=== PATIENT | male | born 1975 | race Caucasian/White ===

== ENCOUNTER 2019-11-21 11:07 | Emergency (ER) | payer BC ==
--- OUTSIDE RECORDS SUMMARY | 2019-11-21 11:18 | XMS REPORT | Continuity of Care Document ---
:1975 External Reference #:[id number] Author Name Helder Mosley DO FACC (transmitted by agent of provider Charlene Patel) Address [address] [place] [address] Care Team Providers Name Role Phone Daren Gordon MD - Family Medicine Care Team Information De Alcholizer Problems Description No Information Available Social History Type Date Description Comments Sex Unknown Tobacco Use Start: Unknown End: Former Cigarette Smoker Unknown Smoking Status Reviewed: 10/29/19 Former Cigarette Smoker ETOH Use Denies alcohol use Tobacco Use Start: Unknown End: Patient is a former smoker Unknown Recreational Drug Use Denies Drug Use Exercise Type/Frequency Exercises sporadically Allergies, Adverse Reactions, Alerts Description No Information Available Medications Active Medications SIG Qnty Indications Ordering Date Provider Ferrous Sulfate 1 by mouth every 90tabs Helder SPedro 10/29/2019 day DO Dimitri FACC 325(65Fe) mg Tablets Keppra 1 by mouth twice a Unknown 1000mg Tablets day Metoprolol Tartrate 1 by mouth twice a 180tabs Helder S. day DO Dimitri FACC 50mg Tablets Dexamethasone 2MG Take 2 tabsq 8 hr Unknown Oral Tab for 3 days,then 2 tabs q12 hr for 3 days,then 1 tab q12 hr indefinitely Omeprazole 1 by mouth every Unknown 20mg day Capsules DR Vitamin C 500 MG 1 tab orally once a Unknown Oral Tablet day Tylenol 2 tablets every 4 Unknown 325mg hours as needed for Capsules pain Immunizations Description No Information Available Vital Signs Date Vital Result Comment 10/29/2019 8:40am Height 69 inches 5'9" Weight 259.00 lb with shoes Heart Rate 72 /min BP Systolic 118 mmHg rue reg cuff BP Diastolic 64 mmHg rue reg cuff BP Systolic Sitting 118 mmHg lue reg cuff BP Diastolic Sitting 64 mmHg lue reg cuff BP Systolic Standing 120 mmHg lue reg cuff BP Diastolic Standing 70 mmHg lue reg cuff Respiratory Rate 14 /min BMI (Body Mass Index) 38.2 kg/m2 Ejection Fraction none Results Test Acquired Date Facility Test Result H/L Range Note Laboratory test 10/22/2019 [facility] Surgical SEE RESULT 1 , [address] [place] [address] [phone] 1 [id number] 2 SEE RESULT BELOW Name: REYNA PEREZ : [address]: Satnam Montejo MD Acct: [id number] Unit: [id number] AGE: 44 Location: [facility] Re10/22/19 SEX: M Status: DEP REF SPEC: [id number] KYLIE: 10/22/19- SUBM DR: Satnam Montejo MD REQ: [id number] RECD: 10/22/19 STATUS: MAVIS WALTON DR: Josselin Tran MD _ ORDERED: LEVEL 4 COMMENTS: [id number] FINAL DIAGNOSIS Colon, at 25 cm, biopsy: -- Benign colonic mucosa with surface epithelial hyperplasia; see comment. COMMENT: The clinical history of necrotic ulcerated mass at this site is noted. There is no evidence of neoplasia in the sampled material. The findings are predominantly surface epithelial mucosa and may not be provider relations representative of the underlying lesion. POST-OPERATIVE DIAGNOSIS Sigmoidoscopy: to 25 cm; necrotic ulcerated mass; biopsy (3) GROSS DESCRIPTION The specimen is received in formalin labeled, Biopsy Colon Mass at 25 cm, and consists of a 0.7 x 0.5 by up to 0.3 cm aggregate of loo-pink irregular soft tissue fragments which is submitted entirely in one cassette. Signed by and Reported on: Kelsy Whitman MD 10/27/19 0908 END OF REPORT DEPARTMENT OF PATHOLOGY, [address] [place] [address] Everardo Lizarraga M.D. Director [facility] # [id number] Procedures Date Code Description Status 10/29/2019 24579 EKG Tracing & Interpretation Completed Medical Devices Description No Information Available Encounters Type Date Location Provider Dx Diagnosis Office Visit 10/29/2019 [facility] Helder Mosley I48.0 Paroxysmal atrial 9:00a Of [facility] DO LOCATED WITHIN [facility] fibrillation I10 Essential (primary) hypertension Assessments Date Code Description Provider 10/29/2019 I48.0 Paroxysmal atrial fibrillation Helder Mosley DO FACC 10/29/2019 I10 Essential (primary) hypertension Helder Mosley DO FACC Plan of Treatment Future Appointment(s):12/15/2019 8:40 am - Helder Mosley DO [facility] at [facility]10/29/2019 - Helder Mosley DO FACCI48.0 Paroxysmal atrial fibrillationComments:- You can stop taking lisinopril. If the BP goes up significant we can always restart it. - In order to restore your rhythm to normal, you would need to be on blood thinners for 1 month at the [facility] minimum. You would obviously need approval from Dr. Tran prior to considering this.Follow up:f/u end of November, with EKGI10 Essential (primary ) hypertension Functional Status Description No Information Available Mental Status Description No Information Available Referrals Description No Information Available
--- NOTE | 2019-11-21 11:38 | ED ---
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 Patient reports he had craniotomy on 10/07/19 at [facility] with Dr. Dalton and then had radiation only once on 10/19/19. Patient has been on chemotherapy since then and his last chemo (Inlyta) was on 11/18/19. Patient had his first and last infusion on 11/11/[address] Vargas. Patient states he was placed on Dexamethasone throughout this whole time and everything was going well but then it was discontinued. Patient reports since his last infusion he has been having intermittent fevers and a nonproductive cough. Patient reports a Tmax of 100.9F on 11/16/19, however he notes his fever broke on 11/18/19 and has not had fevers since then. Patient describes his nonproductive cough is worse with lying down. Patient saw Dr. Vargas on 11/16, 11/19, and yesterday 11/20. Patient states he had a chest XR done on 11/16 that was negative and was placed on antibiotics (Levofloxacin). Patient notes Charlene Concepcion, [employer], thinks he has inflammation of his lymph nodes. He notes he was not able to sleep last night secondary to cough. Additionally patient reports difficulty catching his breath, post nasal drip, and he has noticed mass on left side of abdomen has increased in size. Patient denies any chest pain, nausea, vomiting, diarrhea, constipation. He states his last bowel movement was this morning at 1030. Patient notes he has been taking acetaminophen with hydrocodone for his cough, last dose was at midnight. patient spoke with Dr. Molina this morning and was recommended to come to the ED. Home Medications Medication Instructions Recorded Confirmed Type Dexamethasone TAB* [Decadron TAB*] 1 mg PO BID 10/19/19 11/02/19 History Ferrous Sulfate TAB* 325 mg PO DAILY 10/19/19 11/02/19 History Metoprolol Tartrate TAB* 50 mg PO BID 10/19/19 11/02/19 History [Lopressor TAB*] Omeprazole 20 mg PO DAILY 10/19/19 11/02/19 History levETIRAcetam TAB* [Keppra TAB*] 1,000 mg PO BID 10/19/19 11/02/19 History Ascorbic Acid TAB* [Vitamin C 500 mg PO DAILY 10/22/19 11/02/19 History TAB*] - History Of Current Complaint Chief Complaint: EDGeneral Time Seen by Provider: 11/21/19 11:24 Hx Obtained From: Patient Onset/Duration: Lasting Weeks, Still Present Timing: Weeks Severity Currently: Mild Aggravating Factor(s): lying down Alleviating Factor(s): sitting up Associated Signs And Symptoms: Positive: SOB, Cough. Negative: Chest Pain, Nausea, Vomiting, Diarrhea, Fever - Allergies/Home Medications Allergies/Adverse Reactions: Allergies Allergy/AdvReac Type Severity Reaction Status Date / Time No Known Allergies Allergy Verified 11/21/19 11:13 Home Medications: Home Medications Dexamethasone TAB* [Decadron TAB*] 1 mg PO BID 10/19/19 [History Confirmed 11/02] Ferrous Sulfate TAB* 325 mg PO DAILY 10/19/19 [History Confirmed 11/02/19] Metoprolol Tartrate TAB* [Lopressor TAB*] 50 mg PO BID 10/19/19 [History Confirmed 11/02/19] Omeprazole 20 mg PO DAILY 10/19/19 [History Confirmed 11/02/19] levETIRAcetam TAB* [Keppra TAB*] 1,000 mg PO BID 10/19/19 [History Confirmed 07/12] Ascorbic Acid TAB* [Vitamin C TAB*] 500 mg PO DAILY 10/22/19 [History Confirmed 11/02/19] PMH/Surg Hx/FS Hx/Imm Hx Endocrine/Hematology History: Denies: Hx Diabetes Cardiovascular History: Reports: Hx Hypertension, Other Cardiovascular Problems/ Disorders - HX OF SEIZURES Denies: Hx Pacemaker/ICD History: Reports: Hx Renal Disease - MALIGNANT NEOPLASM OF LEFT KIDNEY 2019 Sensory History: Denies: Hx Hearing Aid Psychiatric History: Denies: Hx Panic Disorder - Cancer History Cancer Type, Location and Year: Metastatic renal CA with mets to colon, chest, and brain Hx Chemotherapy: No Hx Radiation Therapy: Yes - Surgical History Surgical History: Yes Surgery Procedure, Year, and Place: 09/2019 BRAIN CANCER SURGERY - CRANIOTOMY - [facility] - PLATES AND STAR CLOSURE. 10/2019 POWER PORT PLACED Infectious Disease History: No Infectious Disease History: Denies: Traveled Outside the [place] in Last 30 Days - Family History Family History: Paternal grandfather with lymphoma. - Social History Alcohol Use: None Substance Use Type: Reports: None Smoking Status (MU): Never Smoked Tobacco Review of Systems Negative: Fever ENT: Other - POSITIVE: post nasal drip Negative: Chest Pain Positive: Shortness Of Breath, Cough Negative: Vomiting, Diarrhea, Nausea, Other - NEGATIVE: constipation Genitourinary: Other - POSITIVE: increased bulge on left side All Other Systems Reviewed And Are Negative: Yes Physical Exam - Summary Physical Exam Summary: VITAL SIGNS: Reviewed. GENERAL: Patient is a well-developed and nourished male who is lying comfortable in the stretcher. Patient is not in any acute respiratory distress. HEAD AND FACE: No signs of trauma. No ecchymosis, hematomas or skull depressions. No sinus tenderness. EYES: PERRLA, EOMI x 2, No injected conjunctiva, no nystagmus. EARS: Hearing grossly intact. Ear canals and tympanic membranes are within normal limits. MOUTH: Oropharynx within normal limits. NECK: Supple, trachea is midline, no adenopathy, no JVD, no carotid bruit, no c- spine tenderness, neck with full ROM. CHEST: Symmetric, no tenderness at palpation LUNGS: Clear to auscultation bilaterally. No wheezing or crackles. CVS: Regular rate and rhythm, S1 and S2 present, no murmurs or gallops appreciated. ABDOMEN: Soft, non-tender. Bowel sounds are normal. Large mass in left upper quadrant. EXTREMITIES: FROM in all major joints, no edema, no cyanosis or clubbing. NEURO: Alert and oriented x 3. No acute neurological deficits. Speech is normal and follows commands. SKIN: Dry and warm Triage Information Reviewed: Yes Vital Signs On Initial Exam: Initial Vitals Temp Pulse Resp BP Pulse Ox 99.2 F 125 19 134/114 99 11/21/19 11:09 11/21/19 11:09 11/21/19 11:11/21/19 11:09 11/21/19 11:09 Vital Signs Reviewed: Yes Procedures - Sedation Patient Received Moderate/Deep Sedation with Procedure: No Diagnostics - Vital Signs Vital Signs Temp Pulse Resp BP Pulse Ox 11/21/19 11:09 99.2 F 125 19 134/114 99 - Laboratory Result Diagrams: 11/21/19 11:51 11/21/19 11:51 Lab Statement: Any lab studies that have been ordered have been reviewed, and results considered in the medical decision making process. - CT Abdomen/Pelvis CT CT Interpretation Completed By: Radiologist Summary of CT Findings: IMPRESSION: 1. Since the CT examination acquire September 18, 2019 there has been interval growth of a pulmonary nodule in the right middle lobe from 3 mm to 10 mm. 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 There is visible mass effect on neighboring structures especially the bowel. 2. The patient has developed bibasilar pleural effusions, larger on the left than right, relative to the prior CT examination. Dr. Winn has reviewed this report. 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 Patient reports he had craniotomy on 10/07 at [facility] with Dr. Dalton and then had radiation only once on . Patient has been on chemotherapy since then and his last chemo (Inlyta) was on 11/18/19. Patient had his first and last infusion on 11/11/[address] Vargas. Patient states he was placed on Dexamethasone throughout this whole time and everything was going well but then it was discontinued. Patient reports since his last infusion he has been having intermittent fevers and a nonproductive cough. Patient reports a Tmax of 100.9F on 11/16/19, however he notes his fever broke on 11/18/19 and has not had fevers since then. Patient describes his nonproductive cough is worse with lying down. Patient saw Dr. Vargas on 11/16, 11/19, and yesterday 11/20. Patient states he had a chest XR done on 11/16 that was negative and was placed on antibiotics (Levofloxacin). Patient notes Charlene Concepcion NP, thinks he has inflammation of his lymph nodes. He notes he was not able to sleep last night secondary to cough. Additionally patient reports difficulty catching his breath, post nasal drip, and he has noticed mass on left side of abdomen has increased in size. Patient denies any chest pain, nausea, vomiting, diarrhea, constipation. He states his last bowel movement was this morning at 1030. Patient notes he has been taking acetaminophen with hydrocodone for his cough, last dose was at midnight. patient spoke with Dr. Molina this morning and was recommended to come to the ED. Blood test results without any significant abnormality except for a slight anemia with a hemoglobin 11.4 and hematocrit 36, sodium 130, chloride 99, carbon dioxide 21, calcium is 7.9, alkaline phosphatase 559, CRP is 160, total protein is 5.6. Abdominal and pelvic CT IMPRESSION: 1. Since the CT examination acquired September 18, 2019 there has been interval growth of a pulmonary nodule in the right middle lobe from 3 mm to 10 mm. 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 There is visible mass effect on neighboring structures, especially the bowel. 2. The patient has developed bibasilar pleural effusions, larger on the left than the right, relative to the prior CT examination. I discussed the findings and test results with Dr. Molina from oncology and he recommends for the patient to be discharged home and follow up on Saturday with Dr. Vargas. The patient and the patients agree. Patient was discharged home with follow up from Dr. Vargas on Saturday. Patient is hemodynamically stable, alert and oriented 3. - Diagnoses Provider Diagnoses: Abdominal mass, Cough, Pleural effusion, Pulmonary nodule - Physician Notifications Discussed Care Of Patient With: Sly Molina Time Discussed With Above Provider: 11:37 Instructed by Provider To: Other - Dr. Molina, oncologist, recommends abdomen/ pelvis CT. [14:52] Discussed results with Dr. Molina who recommends patient to be discharged home and follow up with Dr. Vargas on Saturday. Discharge ED - Sign-Out/Discharge Documenting (check all that apply): Patient Departure - Discharge home - Discharge Plan Condition: Stable Disposition: HOME Patient Education Materials: Pleural Effusion (ED), Acute Cough (ED) Referrals: Josselin Vargas MD [Primary Care Provider] - Additional Instructions: FOLLOW UP WITH DR. VARGAS ON 11/23/19. RETURN TO THE EMERGENCY DEPARTMENT FOR ANY WORSENING OR NEW SYMPTOMS. - Billing Disposition and Condition Condition: STABLE Disposition: Home - Attestation Statements Document Initiated by Scribe: Yes Documenting Scribe: Veena Rehman Provider For Whom Sofi is Documenting (Include Credential): Az Winn MD Scribe Attestation: Veena Bolaños, scribed for Az Winn MD on 11/21/19 at 2132. Scribe Documentation Reviewed: Yes Provider Attestation: The documentation as recorded by the Veena hernandez accurately reflects the service I personally performed and the decisions made by me, Az Winn MD Status of Scribe Document: Viewed
[2019-11-21 12:12] LABS: ABS Basophils 0.1 10^3/ul (0-0.2); ABS Lymphocytes 0.7 10^3/ul (1.0-4.8); ABS Monocytes 1.2 10^3/ul (0-0.8); Eosinophil % 0.5 %; Hematocrit 36 % (42-52); Hemoglobin 11.4 g/dL (14.0-18.0); Mean Corpuscular HGB Conc 31 g/dL (31-36); Mean Corpuscular Hemoglobin 21 pg (27-31); Mean Corpuscular Volume 68 fL (80-94); Mean Platelet Volume 8.6 fL (7.4-10.4); Platelet Count 304 10^3/uL (150-450); Red Blood Count 5.37 10^6 /uL (4.18-5.48); Red Cell Distribution Width 22 % (10-15); White Blood Count 9.9 10^3/uL (3.5-10.8)
[2019-11-21 12:21] LABS: ALT 33 U/L (7-52); AST 36 U/L (13-39); Albumin 2.9 g/dL (3.2-5.2); Albumin/Globulin Ratio 1.1 (1-3); Alkaline Phosphatase 559 U/L (34-104); Anion Gap 10 mmol/L (2-11); Blood Urea Nitrogen 7 mg/dL (6-24); C Reactive Protein 160.53 mg/L (<8.01); CO2 Carbon Dioxide 21 mmol/L (22-32); Calcium 7.9 mg/dL (8.6-10.3); Chloride 99 mmol/L (101-111); EGFR African American 114.3 (>60); EGFR Non-African American 94.5 (>60); Globulin 2.7 g/dL (2-4); Glucose 90 mg/dL (70-100); Sodium 130 mmol/L (135-145); Total Protein 5.6 g/dL (6.4-8.9)
[2019-11-21] MEDS ORDERED: Iohexol 300* (CONTRAST) 10 ML SDV IV ONE (12:33)
[2019-11-21 15:13] VITALS: BP 153/125
== END 2019-11-21 15:13 | disposition home or self-care (01) ==
LOC: ED 11:07
DX: R19.00 Intra-abdominal and pelvic swelling, mass and lump, unspecified site (principal); J90 Pleural effusion, not elsewhere classified; R91.1 Solitary pulmonary nodule; R06.02 Shortness of breath; R05 Cough; I10 Essential (primary) hypertension; C64.9 Malignant neoplasm of unspecified kidney, except renal pelvis; C78.5 Secondary malignant neoplasm of large intestine and rectum; C79.31 Secondary malignant neoplasm of brain; C79.89 Secondary malignant neoplasm of other specified sites; Z79.899 Other long term (current) drug therapy
CPT/HCPCS: 36415; 74177; 80053; 83605; 83690; 85025; 86140; 87040; 99282; Q9967

== ENCOUNTER 2020-07-26 19:07 | Inpatient (IN) ==
[2020-07-26] MEDS ORDERED: NS 0.9% 1000 ml BAG 1,000 ML IV ONE (19:30)
[2020-07-26] MEDS ORDERED: methylPREDNISolone 125 mg 2 ML VIAL IV ONE (19:44)
[2020-07-26] MEDS ORDERED: methylPREDNISolone 125 mg 2 ML VIAL ONE (19:46)
[2020-07-26] MEDS ORDERED: Albuterol/Ipratropium NEB.SOL (2.5/0.5 MG) 3 ML NEB.SOLN INH ONE (19:46)
[2020-07-26] MEDS ORDERED: Piperacillin/Tazobac ADVAN 3.375 GM in NS 0.9% 100 ml BAG 100 ML IVPB ONE (20:00)
[2020-07-26] MEDS ORDERED: Furosemide 40 mg/4 ml IV VIAL IV SLOW PU ONE (20:00)
[2020-07-26] MEDS ORDERED: Labetalol IV 5 MG/ML 20 ml VIAL IV PUSH PRN (20:02)
[2020-07-26] MEDS ORDERED: Labetalol IV 5 MG/ML 20 ml VIAL ONE (20:06)
[2020-07-26 20:09] LABS: INR 1.12 (0.82-1.09)
[2020-07-26 20:12] LABS: Hematocrit 41 % (42-52); Mean Corpuscular HGB Conc 32 g/dL (31-36); Mean Corpuscular Hemoglobin 26 pg (27-31); Mean Corpuscular Volume 83 fL (80-94); Mean Platelet Volume 8.3 fL (7.4-10.4); Platelet Count 217 10^3/uL (150-450); Red Cell Distribution Width 19 % (10-15); White Blood Count 23.9 10^3/uL (3.5-10.8)
[2020-07-26 20:30] LABS: Troponin I 0.02 ng/mL (<0.03)
[2020-07-26 20:34] LABS: Albumin 3.5 g/dL (3.2-5.2); Albumin/Globulin Ratio 1.8 (1-3); BUN/Creatinine Ratio 33.8 (8-20); Calcium 9.2 mg/dL (8.6-10.3); EGFR Non-African American 108.3 (>60); Globulin 1.9 g/dL (2-4); Potassium 4.6 mmol/L (3.5-5.0); Total Bilirubin 1.9 mg/dL (0.2-1.0); Total Protein 5.4 g/dL (6.4-8.9)
[2020-07-26 20:37] LABS: Urine Appearance Clear; Urine Bilirubin Negative (Negative); Urine Blood Negative (Negative); Urine Color Yellow; Urine Glucose Negative (Negative); Urine Ketones Trace (Negative); Urine Nitrite Negative (Negative); Urine Protein 1+(30 mg/dL) (Negative); Urine Specific Gravity 1.018 (1.010-1.030); Urine Urobilinogen Negative (Negative)
[2020-07-26 20:48] LABS: Urine Bacteria Absent (Absent); Urine Red Blood Cell 1+(3-5/hpf) (Absent); Urine Squamous Epithelial Cell Present (Absent); Urine White Blood Cell Absent (Absent)
[2020-07-26 21:01] LABS: ABS Monocytes 2.1 10^3/ul (0-0.8); ABS Neutrophils 20.8 10^3/ul (1.5-7.7); Eosinophil % 0.1 %; Nucleated Red Blood Cells % 0.1
[2020-07-26] MEDS ORDERED: Iodixanol (CONTRAST) 320 MG/ML 100 ML SDV IV ONE (21:17)
[2020-07-26] MEDS: Azithromycin 500 mg/250 ml NS 500 MG/250 ML BAG IVPB SCH (23:42)
[2020-07-27] MEDS: Metoprolol Tartrate 5 mg VIAL 5 ml VIAL (1 mg/ml) IV PRN ×3 (00:05→16:58)
[2020-07-27] MEDS ORDERED: cefTRIAXone 1 gm/50 mL NS BAG 1 GM/50 ML BAG IVPB SCH (02:00)
[2020-07-27] MEDS: Albuterol/Ipratropium NEB.SOL (2.5/0.5 MG) 3 ML NEB.SOLN INH SCH ×6 (04:12→23:18)
[2020-07-27 05:37] LABS: Hematocrit 38 % (42-52); Mean Corpuscular HGB Conc 31 g/dL (31-36); Mean Corpuscular Hemoglobin 26 pg (27-31); Mean Corpuscular Volume 84 fL (80-94); Mean Platelet Volume 8.3 fL (7.4-10.4); Platelet Count 169 10^3/uL (150-450); Red Blood Count 4.58 10^6 /uL (4.18-5.48); Red Cell Distribution Width 18 % (10-15); White Blood Count 16.8 10^3/uL (3.5-10.8)
[2020-07-27 05:52] LABS: BUN/Creatinine Ratio 33.3 (8-20); Calcium 8.3 mg/dL (8.6-10.3); EGFR African American 109.4 (>60); EGFR Non-African American 90.4 (>60); Magnesium 1.9 mg/dL (1.9-2.7); Phosphorus 4.6 mg/dL (2.5-5.0); Potassium 4.4 mmol/L (3.5-5.0)
[2020-07-27] MEDS ORDERED: Magnesium Sulfate IV 1GM/100ML 1 GM/100 ML BAG IV ONE ×2 (06:02→18:36)
[2020-07-27 06:39] LABS: ABS Lymphocytes 0.7 10^3/ul (1.0-4.8); ABS Monocytes 0.8 10^3/ul (0-0.8); ABS Neutrophils 15.3 10^3/ul (1.5-7.7); Lymphocyte % 3.9 %
[2020-07-27] MEDS ORDERED: Perflutren Lipid Microsphere 3 ML VIAL ONE (08:03)
[2020-07-27] MEDS ORDERED: Piperacillin/Tazobac ADVAN 3.375 GM in NS 0.9% 100 ml BAG 100 ML IV ONE (08:42)
[2020-07-27] MEDS ORDERED: Zosyn per Pharmacy NOTE FOLLOW UP SCH (09:00)
[2020-07-27] MEDS: Heparin 5000 UNITS/ML 1 mL VIAL SUBCUT SCH ×2 (10:18→21:03)
[2020-07-27] MEDS: Linezolid 600 MG IVPREMIX(*) 600 MG/300 ML BAG IVPB SCH ×2 (10:18→21:04)
[2020-07-27] MEDS ORDERED: methylPREDNISolone SOD 40 mg/ml 1 ml VIAL IV SCH (11:00)
[2020-07-27] MEDS: methylPREDNISolone 125 mg 2 ML VIAL IV SCH ×2 (11:05→21:04)
[2020-07-27] MEDS: ZOSYN 3.375 GM Q8H per EXTENDED INFUSION IV SCH ×2 (13:14→21:04)
[2020-07-27] MEDS: Azithromycin 500 mg/250 ml NS 500 MG/250 ML BAG IVPB SCH (23:05)
[2020-07-28] MEDS: Albuterol/Ipratropium NEB.SOL (2.5/0.5 MG) 3 ML NEB.SOLN INH SCH ×6 (03:11→22:40)
[2020-07-28] MEDS: ZOSYN 3.375 GM Q8H per EXTENDED INFUSION IV SCH ×3 (04:41→21:36)
[2020-07-28 04:48] LABS: Hematocrit 36 % (42-52); Hemoglobin 11.2 g/dL (14.0-18.0); Mean Corpuscular HGB Conc 31 g/dL (31-36); Mean Corpuscular Hemoglobin 26 pg (27-31); Mean Corpuscular Volume 83 fL (80-94); Mean Platelet Volume 8.2 fL (7.4-10.4); Platelet Count 161 10^3/uL (150-450); Red Blood Count 4.37 10^6 /uL (4.18-5.48); Red Cell Distribution Width 18 % (10-15); White Blood Count 13.4 10^3/uL (3.5-10.8)
[2020-07-28 05:09] LABS: BUN/Creatinine Ratio 35.2 (8-20); Calcium 8.2 mg/dL (8.6-10.3); EGFR African American 112.3 (>60); EGFR Non-African American 92.8 (>60); Magnesium 2.4 mg/dL (1.9-2.7); Potassium 4.3 mmol/L (3.5-5.0)
[2020-07-28 06:20] LABS: ABS Lymphocytes 0.5 10^3/ul (1.0-4.8); ABS Monocytes 0.7 10^3/ul (0-0.8); ABS Neutrophils 12.1 10^3/ul (1.5-7.7); Lymphocyte % 4.1 %
[2020-07-28] MEDS: Metoprolol Tartrate 5 mg VIAL 5 ml VIAL (1 mg/ml) IV PRN ×2 (08:29→17:27)
[2020-07-28] MEDS: Heparin 5000 UNITS/ML 1 mL VIAL SUBCUT SCH ×2 (09:06→21:33)
[2020-07-28] MEDS: methylPREDNISolone 125 mg 2 ML VIAL IV SCH ×2 (09:07→21:33)
[2020-07-28] MEDS ORDERED: Furosemide 40 mg/4 ml IV VIAL IV SLOW PU ONE (09:32)
[2020-07-28] MEDS: Linezolid 600 MG IVPREMIX(*) 600 MG/300 ML BAG IVPB SCH ×2 (10:00→21:36)
[2020-07-28] MEDS ORDERED: INFLIXIMAB ABDA IV ONE (12:00)
[2020-07-28] MEDS ORDERED: NS 0.9% IV ONE (12:00)
[2020-07-28] MEDS: Azithromycin 500 mg/250 ml NS 500 MG/250 ML BAG IVPB SCH (23:03)
[2020-07-29] MEDS: Albuterol/Ipratropium NEB.SOL (2.5/0.5 MG) 3 ML NEB.SOLN INH SCH ×6 (02:57→22:57)
[2020-07-29 04:40] LABS: ABS Lymphocytes 0.3 10^3/ul (1.0-4.8); ABS Monocytes 0.5 10^3/ul (0-0.8); ABS Neutrophils 7.9 10^3/ul (1.5-7.7); Hematocrit 34 % (42-52); Hemoglobin 10.8 g/dL (14.0-18.0); Lymphocyte % 3.6 %; Mean Corpuscular HGB Conc 32 g/dL (31-36); Mean Corpuscular Hemoglobin 26 pg (27-31); Mean Corpuscular Volume 84 fL (80-94); Mean Platelet Volume 8.2 fL (7.4-10.4); Platelet Count 118 10^3/uL (150-450); Red Blood Count 4.09 10^6 /uL (4.18-5.48); Red Cell Distribution Width 18 % (10-15); White Blood Count 8.7 10^3/uL (3.5-10.8)
[2020-07-29 04:57] LABS: BUN/Creatinine Ratio 38.4 (8-20); Calcium 7.9 mg/dL (8.6-10.3); EGFR African American 139.4 (>60); EGFR Non-African American 115.2 (>60); Magnesium 2.4 mg/dL (1.9-2.7); Potassium 4.2 mmol/L (3.5-5.0)
[2020-07-29] MEDS: ZOSYN 3.375 GM Q8H per EXTENDED INFUSION IV SCH ×3 (05:49→20:16)
[2020-07-29] MEDS: Heparin 5000 UNITS/ML 1 mL VIAL SUBCUT SCH ×2 (07:43→20:15)
[2020-07-29] MEDS: methylPREDNISolone 125 mg 2 ML VIAL IV SCH (07:43)
[2020-07-29] MEDS ORDERED: Furosemide 20 mg/2 ml IV VIAL IV ONE (08:17)
[2020-07-29] MEDS ORDERED: methylPREDNISolone 125 mg 2 ML VIAL IV SCH (09:00)
[2020-07-29] MEDS: Linezolid 600 MG IVPREMIX(*) 600 MG/300 ML BAG IVPB SCH ×2 (09:25→20:16)
[2020-07-29] MEDS: methylPREDNISolone SOD 40 mg/ml 1 ml VIAL IV SCH ×2 (16:27→20:16)
[2020-07-29] MEDS ORDERED: Furosemide 40 mg/4 ml IV VIAL IV SLOW PU ONE (17:19)
[2020-07-29] MEDS: Metoprolol Tartrate 5 mg VIAL 5 ml VIAL (1 mg/ml) IV PRN (17:28)
[2020-07-29] MEDS: Azithromycin 500 mg/250 ml NS 500 MG/250 ML BAG IVPB SCH (23:37)
[2020-07-30] MEDS: Albuterol/Ipratropium NEB.SOL (2.5/0.5 MG) 3 ML NEB.SOLN INH SCH ×5 (03:10→22:57)
[2020-07-30] MEDS: ZOSYN 3.375 GM Q8H per EXTENDED INFUSION IV SCH ×3 (04:27→20:30)
[2020-07-30 04:50] LABS: Hematocrit 33 % (42-52); Hemoglobin 10.4 g/dL (14.0-18.0); Mean Corpuscular HGB Conc 32 g/dL (31-36); Mean Corpuscular Hemoglobin 26 pg (27-31); Mean Corpuscular Volume 83 fL (80-94); Mean Platelet Volume 7.9 fL (7.4-10.4); Platelet Count 120 10^3/uL (150-450); Red Blood Count 3.99 10^6 /uL (4.18-5.48); Red Cell Distribution Width 18 % (10-15); White Blood Count 10.5 10^3/uL (3.5-10.8)
[2020-07-30 05:15] LABS: BUN/Creatinine Ratio 34.2 (8-20); Calcium 7.6 mg/dL (8.6-10.3); EGFR African American 139.4 (>60); EGFR Non-African American 115.2 (>60); Potassium 3.8 mmol/L (3.5-5.0)
[2020-07-30] MEDS: Linezolid 600 MG IVPREMIX(*) 600 MG/300 ML BAG IVPB SCH ×2 (08:06→20:30)
[2020-07-30] MEDS: methylPREDNISolone SOD 40 mg/ml 1 ml VIAL IV SCH ×3 (08:07→20:25)
[2020-07-30] MEDS: Heparin 5000 UNITS/ML 1 mL VIAL SUBCUT SCH ×2 (08:07→20:28)
[2020-07-30] MEDS ORDERED: Lorazepam PYXIS KEY ONE (09:06)
[2020-07-30] MEDS ORDERED: Furosemide 40 mg/4 ml IV VIAL IV SLOW PU ONE ×2 (09:32→17:20)
[2020-07-30] MEDS ORDERED: Potassium Chlor 20 meq TAB.ER PO ONE (18:00)
[2020-07-30] MEDS: Metoprolol Tartrate 5 mg VIAL 5 ml VIAL (1 mg/ml) IV PRN (18:05)
[2020-07-31] MEDS: Albuterol/Ipratropium NEB.SOL (2.5/0.5 MG) 3 ML NEB.SOLN INH SCH ×6 (02:51→19:04)
[2020-07-31 04:41] LABS: Hematocrit 33 % (42-52); Hemoglobin 10.2 g/dL (14.0-18.0); Mean Corpuscular HGB Conc 31 g/dL (31-36); Mean Corpuscular Hemoglobin 26 pg (27-31); Mean Corpuscular Volume 82 fL (80-94); Platelet Count 124 10^3/uL (150-450); Red Blood Count 3.98 10^6 /uL (4.18-5.48); Red Cell Distribution Width 19 % (10-15); White Blood Count 13.4 10^3/uL (3.5-10.8)
[2020-07-31 04:58] LABS: BUN/Creatinine Ratio 35.8 (8-20); Calcium 7.6 mg/dL (8.6-10.3); EGFR African American 153.8 (>60); EGFR Non-African American 127.1 (>60); Potassium 3.7 mmol/L (3.5-5.0)
[2020-07-31] MEDS: ZOSYN 3.375 GM Q8H per EXTENDED INFUSION IV SCH ×3 (05:07→21:11)
[2020-07-31] MEDS: Heparin 5000 UNITS/ML 1 mL VIAL SUBCUT SCH ×2 (08:14→21:10)
[2020-07-31] MEDS: methylPREDNISolone SOD 40 mg/ml 1 ml VIAL IV SCH ×3 (08:14→20:44)
[2020-07-31] MEDS: Linezolid 600 MG IVPREMIX(*) 600 MG/300 ML BAG IVPB SCH ×3 (08:22→22:17)
[2020-07-31] MEDS ORDERED: Furosemide 20 mg/2 ml IV VIAL IV SLOW PU ONE (09:54)
[2020-07-31] MEDS: Metoprolol Tartrate 5 mg VIAL 5 ml VIAL (1 mg/ml) IV PRN (17:44)
[2020-07-31] MEDS ORDERED: Morphine 2 MG/ML SYRINGE ONE ×2 (18:25→20:23)
[2020-07-31] MEDS: Morphine 2 MG/ML SYRINGE IV PRN ×2 (18:27→22:50)
[2020-07-31] MEDS ORDERED: Furosemide 40 mg/4 ml IV VIAL IV SLOW PU ONE (19:03)
[2020-07-31] MEDS ORDERED: Metoprolol Tartrate 5 mg VIAL 5 ml VIAL (1 mg/ml) IV PRN (19:03)
[2020-07-31] MEDS ORDERED: Lorazepam PYXIS KEY ONE ×2 (20:22→23:53)
[2020-07-31] MEDS ORDERED: Lorazepam PYXIS KEY PRN ×3 (20:22→23:52)
[2020-07-31] MEDS ORDERED: LORazepam 2 mg VIAL 1 ml IV PUSH ONE ×3 (20:22→23:52)
[2020-07-31] MEDS ORDERED: LORazepam 2 mg VIAL 1 ml ONE ×2 (20:23→23:53)
[2020-07-31] MEDS ORDERED: Morphine 2 MG/ML SYRINGE IV ONE (20:23)
[2020-07-31] MEDS ORDERED: Morphine 2 MG/ML SYRINGE IV PRN (23:17)
[2020-08-01 00:13] VITALS: BP 146/110
== END 2020-08-01 00:15 | disposition expired | DRG 133 ==
LOC: ED 19:07 → ICU 21:43
PROVIDERS: ADMIT Internal Medicine; ATTEND Internal Medicine